=== PATIENT | female | born 1955 | race Caucasian/White ===

== ENCOUNTER 2020-02-08 09:14 | Emergency (ER) | payer MEDICARE, OTHER, SELFPAY ==
[2020-02-08 09:17] VITALS: BP 139/113; PULSE 107; RESP 20; TEMP 36.5; O2SAT 98; BMI 33.2
--- NOTE | 2020-02-08 09:20 | ED_ITS ---
HPI - Extremity Problem General: Chief complaint: Extremity Problem,Nontraumatic Stated complaint: LEFT LEG PAIN (KNEE) Time Seen by Provider: 02/08/20 09:20 Source: patient Mode of arrival: ambulatory Limitations: no limitations History of Present Illness: HPI Narrative: Patient comes in today with left anterior knee pain. Patient states that the pain started Thursday night. Patient denies any injury or fall. Patient is a chronic smoker. Patient appears well. Patient appears in moderate pain at rest. Review of Systems General: Reports: 10 or more systems reviewed and unremarkable except in HPI and below Musc: Reports: joint pain (left knee) [facility] PFSH: Social History Smoking and tobacco status: current every day smoker Physical Exam Const: COMMON NORMALS: no apparent distress and oriented x3 GENERAL APPEARANCE: cooperative HENMT: COMMON NORMALS: normocephalic, TM's normal bilaterally and external nose normal HEAD & SCALP: normal to inspection and normocephalic NOSE: external nose normal TYMPANIC MEMBRANE: TM's normal bilaterally MOUTH: oral and palatal mucosa normal THROAT: posterior oropharynx normal Eye: GENERAL EYE: normal appearance of both eyes Neck/C-Spine: COMMON NORMALS: full ROM Lymph: LYMPHATIC: no lymphadenopathy noted Chest: COMMONS NORMALS: inspection of chest normal Resp: COMMON NORMALS: normal respiratory effort EFFORT & INSPECTION: Yes able to speak in complete sentences Cardio: COMMON NORMALS: regular rate and regular rhythm RATE: regular rate RHYTHM: regular rhythm GI: COMMON NORMALS: non-tender : COMMON NORMALS: Yes no CVA tenderness BLADDER/KIDNEY EXAM: Yes no CVA tenderness Back/Pelvis: COMMON NORMALS: no CVA tenderness and thoracic and lumbar spine normal to inspection Extremity: NARRATIVE EXTREMITY EXAM: Anterior patellar pain with palpation of the infrapatellar tendon. No significant swelling. Decreased flexion due to pain. Normal range of motion of the hip without pain. No pain palpated in the sacroiliac or lumbar spine. No crepitus is noted to the knee. No redness or significant swelling is noted distally to the extremity. Strong pedal pulses are noted. Prompt capillary refill is noted. Neuro: COMMON NORMALS: oriented x3 and moves all extremities Psych: COMMON NORMALS: mental status grossly normal and cooperative Skin: COMMON NORMALS: no rashes or lesions noted GENERAL SKIN EXAM: no rashes or lesions noted Course Vital Signs: Vital signs: Vital Signs Temperature 97.7 F 02/08/20 09:17 Pulse Rate 107 H 02/08/20 09:17 Respiratory Rate 20 H 02/08/20 09:17 Blood Pressure 139/113 02/08/20 09:17 Pulse Oximetry 98 02/08/20 09:17 MDM - Extremity (Nontraumatic) MDM Narrative: Medical decision making narrative: Patient comes in today for complaints of left knee pain. Patient reports for the last day and a half 2 days patient has had increased pain to the left knee. Patient denies any injury. Exam notes minimal to no swelling noted to the extremity. Patient does have tenderness with manipulation of the patella. Range of motion of the knee is limited with flexion due to pain. No significant swelling or redness is noted to the extremity. Differential diagnosis includes tendinopathy, ost eoarthritis, strain. X-ray was negative for any acute abnormality. Reviewed exam with patient with recommendations for treatment and follow-up. Patient reports understanding agreed to plan. Discharge Plan Discharge Patient Disposition: Home, Self-Care Clinical Impression: Acute pain of left knee Knee osteoarthritis Qualifiers: Osteoarthritis type: unspecified Laterality: unspecified laterality Qualified Code(s): M17.10 - Unilateral primary osteoarthritis, unspecified knee Condition: Stable Prescriptions: New diclofenac sodium 75 mg tablet,delayed release (DR/EC) 75 mg PO BID Qty: 20 RF: 0 Discharge Orders: Discharge Order (Routine); Ordered 02/08/20 Ordered By: Sony Perkins Referrals: Tacho Morales MD [Primary Care Provider] - Discharge Diet: Usual diet Discharge Activity: Increase activity as tolerated Patient Instructions: Knee Pain (ED) Activity Restrictions/Additional Instructions: Maintain normal activity as tolerated. Use ice or heat for further pain relief. Drink plenty of water with medication. Use acetaminophen, Tylenol, for further pain relief with prescription medication. Follow-up with primary care in 1 week for recheck. Return to the ER for worsening symptoms or high fever. 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
--- NOTE | 2020-02-08 09:25 | XR_ITS ---
WS: [id number] XR knee LT 3V* [id number] REASON FOR EXAM: pain, non-traumatic FINDINGS: The meniscal spaces are normal. The patella tibial space was normal. The patella femoral articulations were normal. The femur, tibia, fibula, and patella show no fractures. XR/XR knee LT 3V* [id number] IMPRESSION: Negative left knee.
[2020-02-08] MEDS: ketorolac 30 mg/mL INJ IM (09:29)
--- NOTE | 2020-02-08 09:50 | PC.NURSE ---
Patient repositioned in bed and given a pillow to prop her knee up and an ice pack for her pain
[2020-02-08 10:22] VITALS: BP 149/88; PULSE 98; RESP 18; TEMP 36.9; O2SAT 97
== END 2020-02-08 10:20 | disposition home or self-care (01) ==
LOC: ER 10:02
PROVIDERS: Emergency Provider Nurse Practitioner Family; Family Provider Family Medicine; PCP Family Medicine
DX: M17.12 Unilateral primary osteoarthritis, left knee (principal); F17.210 Nicotine dependence, cigarettes, uncomplicated
CPT/HCPCS: 12345; 73562; 96372; 99281; 99283; J1885

== ENCOUNTER 2020-05-24 15:37 | Outpatient (CLI) | payer MEDICARE, SELFPAY ==
--- NOTE | 2020-05-24 15:46 | CT_ITS ---
WS: [id number] EXAM: CT chest wo con [id number] DATE OF EXAMINATION: 05/24/2020, 1557 hours COMPARISON: Prior CT from 05/16/2019 and 03/23/2018 HISTORY: 65 years old with pulmonary nodule follow-up TECHNIQUE: Transaxial computed tomography images obtained through the chest without the utilization o f contrast with images viewed in multiple windows with reconstructions. DLP: 624.[address] scans at [facility] use at least one of these dose optimization techniques: automat ed exposure control; mA and/or kV adjustment per patient size (includes targeted exams where dose is matched to clinical indication); or iterative reconstruction. FINDINGS: Emphysematous lung changes again demonstrated. Parenchymal loss in the upper lung zones again seen. C onsidered fairly extensive bilaterally. Small amount of scarring in the lateral segment of the middle lobe. The nodular density in the left lower lobe posterior lateral image 28 of 64 stable. Nodule abigail ge 31 of 64 stable. Third nodule image 37 of 64 stable. Nodular density anterior left lower lobe imag e 43 of 64 stable. No new or enlarging pulmonary nodules are demonstrated. Stability this timeframe s uggests a benign process. No further surveillance recommended. No mediastinal mass or adenopathy. Axi llary regions are normal in appearance. Streak artifact off a right shoulder hardware replacement shaun nges. Heart size is normal. Upper abdomen solid organ attenuation is unremarkable. CT/CT chest wo con [id number] IMPRESSION: Emphysematous lung changes similar. No change in noncalcified pulmonary nodules left lower lobe. Stable in a two-year time frame. No further surveillance petros mmended.
== END 2020-05-24 15:38 | disposition home or self-care (01) ==
LOC: RADWPI 15:37
PROVIDERS: PCP Nurse Practitioner Family; Visit Provider Nurse Practitioner Family
DX: R91.1 Solitary pulmonary nodule (principal)
CPT/HCPCS: 71250

== ENCOUNTER 2020-08-14 13:08 | Outpatient (CLI) | payer MEDICARE, SELFPAY ==
--- NOTE | 2020-08-14 13:20 | CT_ITS ---
WS: [id number] CT scan of the chest without IV contrast, additional two-dimensional coronal and sagittal reconstruct ion was performed. 08/14/2020 Clinical Data: LUNG NODULE Comparison: CT chest, 05/24/2020. DLP: 631.[address] scans at [facility] use at least one of these dose optimization techniques: automat ed exposure control; mA and/or kV adjustment per patient size (includes targeted exams where dose is matched to clinical indication); or iterative reconstruction. Findings: There are several small nodules throughout the lungs. However these have not changed in size or confi guration and there are no new nodules. All these nodules appear benign and no further imaging is petros mmended. No masses or effusions are seen. There is artifact from a right shoulder prosthesis. Bilateral upper lobe emphysematous change is present. No pneumonia or pneumothorax is present. The heart size is norm al with no pericardial effusion. There is coronary artery calcification. The pulmonary arterial syste m and thoracic aorta demonstrate no abnormalities or dilatations. There is no axillary or significant mediastinal adenopathy. 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 The upper abdomen shows no change from before. CT/CT chest wo con [id number] Impression: 1. Small benign nodules unchanged, recommend no further imaging. 2. Negative for acute cardiopulmonary disease.
== END 2020-08-14 13:09 | disposition home or self-care (01) ==
PROVIDERS: PCP Nurse Practitioner Family; Visit Provider Nurse Practitioner Family
DX: R91.1 Solitary pulmonary nodule (principal)
CPT/HCPCS: 71250

== ENCOUNTER 2021-07-01 09:26 | Inpatient (IN) | payer MEDICARE, SELFPAY ==
[2021-07-01] VITALS (16 sets, daily range): BP systolic 85–148; BP diastolic 34–103; PULSE 78–104; RESP 15–24; TEMP 36.2–37.6; O2SAT 93–100; BMI 23.4; BMI 22.1
--- NOTE | 2021-07-01 09:46 | XR_ITS ---
WS: [id number] Exam: XR hip LT 2-3V wo/w pel* [id number] Date/Time of Exam: 07/01/2021 9:48 AM Reason For Exam: fall with left hip pain Comparison 09/30/2018. There is a displaced subcapital fracture of the left hip with coxa vera deformity. There is superior and lateral displacement of the proximal femur. Moderate DJD of the joint compartment. Soft tissues a re unremarkable. XR/XR hip LT 2-3V wo/w pel* [id number] IMPRESSION: 1. Displaced subcapital fracture of the left hip with coxa vera deformity.
--- NOTE | 2021-07-01 09:46 | ED_ITS ---
Documented by User: JORGITO Kruger 07/01/21 11:20 HPI - Fall General: Chief Complaint: Fall Stated Complaint: LEFT HIP PAIN, FALL ON THURSDAY Time Seen by Provider: 07/01/21 09:26 History of Present Illness: HPI Narrative: Patient is a 66-year-old female comes to the ED with left hip pain. Patient had a fall on Thursday while she was at her house. She says she tripped over one of her 's shoes causing her to go down and hit the left side of her hip on the floor. Since her fall on Thursday she has not been able to weight-bear on left leg. She has been laying on the couch through the weekend. She rates her pain at 10 out of 10 days although occasionally for the left hip. Denies any head trauma or loss of consciousness. Associated symptoms-after fall: Denies abdominal pain, chest pain, headache(s), hematuria or neck pain Review of Systems Const: Denies: fever(s), chills or fatigue Eyes: Denies: change in vision or eye discomfort ENMT: Denies: throat pain, odynophagia, nasal discharge or nasal congestion Card: Denies: chest pain, palpitations, edema, swelling of feet/ankles, dyspnea on exertion or orthopnea Resp: Denies: dyspnea, productive cough or non-productive cough GI: Denies: abdominal pain, nausea, vomiting, diarrhea, constipation or hematochezia : Denies: flank pain, dysuria or hematuria Musc: Reports: joint pain (left hip); Denies: neck pain, back pain or extremity swelling Skin/Breast: Reports: other (Ecchymosis of the left lateral hip); Denies: rash or new lesions Neuro: Denies: headache(s), numbness in extremities or weakness in extremities PFSH ED PFSH: Medical History COPD (chronic obstructive pulmonary disease) Depression DJD (degenerative joint disease) Hyperlipidemia Hypertension Surgical History History of History of hip surgery History of shoulder surgery Social History Smoking and tobacco status: former smoker Alcohol intake: never Physical Exam Const: COMMON NORMALS: no acute distress, patient oriented x3 and alert GENERAL APPEARANCE: cooperative and comfortable HENMT: COMMON NORMALS: normocephalic HEAD & SCALP: normocephalic MOUTH: Normal oral and palatal mucosa present THROAT: posterior oropharynx normal and uvula midline Eye: COMMON NORMALS: Equal, round and reactive pupils present PUPIL: Yes Equal, round and reactive pupils present Neck/C-Spine: COMMON NORMALS: supple GENERAL: Yes normal visual inspection Resp: COMMON NORMALS: normal respiratory effort, No retractions, No use of accessory muscles and clear to auscultation bilaterally AUSCULTATION: clear to auscultation bilaterally Cardio: COMMON NORMALS: regular rate, regular rhythm, S1 normal heart sound present, S2 normal heart sound present, No gallops present (Cardio), No clicks present (Cardio), No murmurs present (Cardio) and Peripheral pulses 2+ throughout RATE: regular rate RHYTHM: regular rhythm HEART SOUNDS: S1 normal heart sound present and S2 normal heart sound present PERIPHERAL PULSES: Peripheral pulses 2+ throughout GI: COMMON NORMALS: Normal to inspection, nondistended, normoactive bowel sounds present, Soft to palpation, non-tender and no masses PALPATION: Yes Soft to palpation : COMMON NORMALS: Yes no CVA tenderness BLADDER/KIDNEY EXAM: Yes no CVA tenderness Back/Pelvis: COMMON NORMALS: no CVA tenderness Extremity: LEFT LOWER EXTREMITY: Yes hip joint Left hip: Yes inspection (Left leg appears shortened and externally rotated. Ecchymosis to hip), Yes palpation (Tender to palpation over lateral aspect of hip), Yes ROM (Limited due to pain) and Yes neurovascular exam (Neurovascular tact.) Neuro: COMMON NORMALS: patient oriented x3 and moves all extremities SENSO RIUM/ORIENTATION: Yes alert Skin: GENERAL SKIN EXAM: dry skin and ecchymosis (At left lateral hip.) Course Consultations: Consultation #1: I have a call placed in with Dr. Johnson to discuss patient's case and hip fracture results of x-ray. Dr. Johnson was currently in the OR and will be returning the call when he gets out. Time: 10:30 Vital Signs: Vital signs: Vital Signs Temperature 98.9 F 07/03/21 04:00 Pulse Rate 95 07/03/21 04:00 Respiratory Rate 16 07/03/21 04:00 Blood Pressure 124/81 07/03/21 04:00 Pulse Oximetry 97 07/03/21 04:00 MDM - Fall MDM Narrative: Medical decision making narrative: Patient is a 66-year-old female comes to the ED with left hip pain after a fall. Upon exam patient's left lower leg is shortened and externally rotated. Ecchymosis noted of left hip. X-ray of left hip showed a displaced subcapital fracture of the left hip with coxa vera deformity. I had a call placed to Dr. Johnson to inform them of patient case and the hip fracture, but he was currently in the OR and will return the call to the ED when he finishes up his case. I discussed case with Dr. Johnston and he will be taking over care of patient and having patient admitted. Lab Data: Attestation: I reviewed the patient's lab results. Labs: Lab Results 07/01/21 07/01/21 07/01/21 10:40 10:40 10:40 WBC 7.1 10^3/uL 10^3/ uL (4.0-10.0) RBC 3.53 10^6/uL L 10 ^6/uL (4.1-5.3) Hgb 10.8 g/dL L g/dL (11.5-15.3) Hct 32.8 % L % (37.0-47.0) MCV 92.9 fl fl (81-99) MCH 30.6 pg pg (28.0-34.0) MCHC 32.9 g/dL g/dL (30.0-36.0) RDW 13.2 % % (12.1-15.1) Plt Count 292 10^3/cmm 10^3 /cmm (130-400) MPV 9.1 fL fL (7.4-10.4) Neut % (Auto) 67.6 % % Lymph % (Auto) 20.1 % % [place] % (Auto) 10.0 % % Eos % (Auto) 1.4 % % Baso % (Auto) 0.6 % % Neut # (Auto) 4.82 10^3/uL 10^3 /uL (1.8-7.7) Lymph # (Auto) 1.4 10^3/uL 10^3/ uL (0.8-4.8) [place] # (Auto) 0.7 10^3/uL 10^3/ uL (0.2-0.9) Eos # (Auto) 0.1 10^3/uL 10^3/ uL (0.0-0.8) Baso # (Auto) 0.0 10^3/uL 10^3/ uL (0.0-0.1) Nucleated RBC % (a uto) 0 % % Nucleated RBCs # 0.0 /100WBC /100W BC PT 13.10 SECONDS SEC ONDS (12.1-14.9) INR 0.96 (0.8-1.2) APTT 35.6 SECONDS SECO NDS (23.9-36.7) Sodium 130 mmol/L L mmol /L (136-145) Potassium 3.6 mmol/L mmol/L (3.5-5.1) Chloride 95 mmol/L L mmol/ L (98-107) Carbon Dioxide 25 mmol/L mmol/L (22-29) Anion Gap 13.6 (5-19) BUN 13 mg/dL mg/dL (8-23) Creatinine 0.7 mg/dL mg/dL (0.5-0.9) GFR Calculation 83.2 mL/min L mL/ min (90-130) Glucose 99 mg/dL mg/dL (65-115) Calculated Osmolal ity 270 mOsm/kg L mOs m/kg (285-295) Calcium 9.5 mg/dL mg/dL (8.5-10.5) Total Bilirubin 0.3 mg/dL mg/dL (0.15-1.2) AST 18 U/L U/L (0-32) ALT 16 U/L U/L (0-33) Alkaline Phosphata se 68 IU/L IU/L (35-105) Creatine Kinase Total Protein 7.1 g/dL g/dL (6.6-8.7) Albumin 3.7 g/dL g/dL (3.5-5.2) Globulin 3.4 g/dL g/dL (1.3-4.6) Vitamin B12 TSH Urine Color Urine Appearance Urine pH Ur Specific Gravit y Urine Protein Urine Glucose (UA) Urine Ketones Urine Blood Urine Nitrate Urine Bilirubin Urine Urobilinogen Ur Leukocyte Sally ase 07/01/21 07/01/2107/01/21 10:40 10:40 13:39 WBC RBC Hgb Hct MCV MCH MCHC RDW Plt Count MPV Neut % (Auto) Lymph % (Auto) [place] % (Auto) Eos % (Auto) Baso % (Auto) Neut # (Auto) Lymph # (Auto) [place] # (Auto) Eos # (Auto) Baso # (Auto) Nucleated RBC % (a uto) Nucleated RBCs # PT INR APTT Sodium Potassium Chloride Carbon Dioxide Anion Gap BUN Creatinine GFR Calculation Glucose Calculated Osmolal ity Calcium Total Bilirubin AST ALT Alkaline Phosphata se Creatine Kinase 104 U/L U/L (26-192) Total Protein Albumin Globulin Vitamin B12 360 pg/mL pg/mL (232-1245) TSH 0.95 uIU/mL uIU/m L (0.27-4.20) Urine Color Yellow (Yellow) Urine Appearance Clear (CLEAR) Urine pH 6 (5-7) Ur Specific Gravit y 1.010 (1.005-1.030) Urine Protein Neg (Negative) Urine Glucose (UA) Norm (Normal) Urine Ketones Negative (Negative) Urine Blood Neg (Negative) Urine Nitrate Negative (Negative) Urine Bilirubin Neg (Negative) Urine Urobilinogen Norm mg/dL mg/dL (Negative) Ur Leukocyte Sally ase Negative (Negative) Imaging Data^: Xray Ortho: Attestation: I personally reviewed and interpreted this imaging study as follows: Radiologist's impression: [address] [address] XRay Report Signed Patient: Roxann Chamberlain Unit #: [id number] : 1955 Age/Sex: 66 / F ADM Date: 07/01/21 Loc: ER Room/Bed: Attending Dr: Ordering Provider/Ordering MD: Micky Arenas Date of Service: 07/01/21 Procedure(s): XR hip LT 2-3V wo/w pel* [id number] Accession Number(s): [id number] Report Number: [id number] WS: [id number] Exam: XR hip LT 2-3V wo/w pel* [id number] Date/Time of Exam: 07/01/2021 9:48 AM Reason For Exam: fall with left hip pain Comparison 09/30/2018. There is a displaced subcapital fracture of the left hip with coxa vera deformity. There is superior and lateral displacement of the proximal femur. Moderate DJD of the joint compartment. Soft tissues are unremarkable. XR/XR hip LT 2-3V wo/w pel* [id number] IMPRESSION: 1. Displaced subcapital fracture of the left hip with coxa vera deformity. Dictated By: Fareed Ng DO Signed By: Fareed Ng DO Signed Date/Time: 07/01/21 1007 DD/ 1006 Discharge Plan Discharge Patient Disposition: Admitted As Inpatient Admit Provider: Glen Johnson Clinical Impression: Left displaced femoral neck fracture, Hypertension, COPD (chronic obstructive pulmonary disease) Condition: Stable Sign Out Sign Out Data: Patient Sign Out occurred on 07/01/21 at 11:12. Patient's care was discussed, and care was transferred from to Jony Johnston DO. 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 Initially seen by the midlevel. She has shortening and external rotation of her left leg. Neurovascularly intact denies other injuries. MD complaint: fall Onset (ago): minute(s) Fall from: standing Place fall occurred: home Loss of consciousness: None Prolonged down time: no Symptoms prior to fall: none Context: tripped/slipped Location of injury - extremities: Left: thigh (Hip) Severity: severe Quality: sharp Associated symptoms-after fall: Reports difficulty walking; Denies abdominal pain, chest pain, confusion, headache(s), hematuria, lightheadedness, neck pain, numbness, short of breath, vertigo or weakness Review of Systems Const: Denies: fever(s), chills, body aches, change in appetite, fatigue or malaise ENMT: Denies: throat pain, ear or mastoid pain, nasal discharge or nasal congestion Card: Denies: chest pain or lightheadedness Resp: Denies: dyspnea, productive cough or non-productive cough GI: Denies: abdominal pain : Denies: hematuria Musc: Denies: neck pain Skin/Breast: Denies: rash or pruritus Neuro: Reports: difficulty walking; Denies: headache(s), vertigo or confusion PFSH ED PFSH: Medical History COPD (chronic obstructive pulmonary disease) Depression DJD (degenerative joint disease) Hyperlipidemia Hypertension Surgical History History of History of hip surgery History of shoulder surgery Social History Smoking and tobacco status: former smoker Alcohol intake: never Physical Exam Const: COMMON NORMALS: no acute distress GENERAL APPEARANCE: cooperative and comfortable ORIENTATION/CONSCIOUSNESS: Yes awake, Yes oriented to person, Yes oriented to place and Yes oriented to time HENMT: COMMON NORMALS: normocephalic and atraumatic HEAD & SCALP: normocephalic and atraumatic Neck/C-Spine: COMMON NORMALS: no JVD Resp: COMMON NORMALS: normal respiratory effort, No retractions, No use of accessory muscles and clear to auscultation bilaterally AUSCULTATION: clear to auscultation bilaterally Cardio: COMMON NORMALS: no JVD, regular rate, regular rhythm and No murmurs present (Cardio) RATE: regular rate RHYTHM: regular rhythm GI: COMMON NORMALS: Soft to palpation and No hepatosplenomegaly present AUSCULTATION: Yes normoactive bowel sounds PALPATION: Yes Soft to palpation, No Tenderness to palpation present (GI), No Guarding due to palpation present (GI) and Yes No hepatosplenomegaly present Extremity: COMMON NORMALS: normal to inspection, capillary refill normal, no clubbing, cyanosis or edema, no calf tenderness and no pedal edema NARRATIVE EXTREMITY EXAM: Obvious deformity of the left hip consistent with left hip fracture Neuro: SENSORIUM/ORIENTATION: Yes oriented to person, Yes oriented to place and Yes oriented to time Skin: COMMON NORMALS: no rashes or lesions noted GENERAL SKIN EXAM: no rashes or lesions noted Course Vital Signs: Vital signs: Vital Signs Temperature 98.9 F 07/03/21 04:00 Pulse Rate 95 07/03/21 04:00 Respiratory Rate 16 07/03/21 04:00 Blood Pressure 124/81 07/03/21 04:00 Pulse Oximetry 97 07/03/21 04:00 MDM - Fall MDM Narrative: Medical decision making narrative: Discussed with Ortho and the hospitalist. Seen and evaluated patient reviewed labs and imaging is available on the chart. We will go ahead and admit for left subcapital hip fracture. Orders are written. Lab Data: Labs: Lab Results 07/01/21 07/01/21 07/01/21 10:40 10:40 10:40 WBC 7.1 10^3/uL 10^3/ uL (4.0-10.0) RBC 3.53 10^6/uL L 10 ^6/uL (4.1-5.3) Hgb 10.8 g/dL L g/dL (11.5-15.3) Hct 32.8 % L % (37.0-47.0) MCV 92.9 fl fl (81-99) MCH 30.6 pg pg (28.0-34.0) MCHC 32.9 g/dL g/dL (30.0-36.0) RDW 13.2 % % (12.1-15.1) Plt Count 292 10^3/cmm 10^3 /cmm (130-400) MPV 9.1 fL fL (7.4-10.4) Neut % (Auto) 67.6 % % Lymph % (Auto) 20.1 % % [place] % (Auto) 10.0 % % Eos % (Auto) 1.4 % % Baso % (Auto) 0.6 % % Neut # (Auto) 4.82 10^3/uL 10^3 /uL (1.8-7.7) Lymph # (Auto) 1.4 10^3/uL 10^3/ uL (0.8-4.8) [place] # (Auto) 0.7 10^3/uL 10^3/ uL (0.2-0.9) Eos # (Auto) 0.1 10^3/uL 10^3/ uL (0.0-0.8) Baso # (Auto) 0.0 10^3/uL 10^3/ uL (0.0-0.1) Nucleated RBC % (a uto) 0 % % Nucleated RBCs # 0.0 /100WBC /100W BC PT 13.10 SECONDS SEC ONDS (12.1-14.9) INR 0.96 (0.8-1.2) APTT 35.6 SECONDS SECO NDS (23.9-36.7) Sodium 130 mmol/L L mmol /L (136-145) Potassium 3.6 mmol/L mmol/L (3.5-5.1) Chloride 95 mmol/L L mmol/ L (98-107) Carbon Dioxide 25 mmol/L mmol/L (22-29) Anion Gap 13.6 (5-19) BUN 13 mg/dL mg/dL (8-23) Creatinine 0.7 mg/dL mg/dL (0.5-0.9) GFR Calculation 83.2 mL/min L mL/ min (90-130) Glucose 99 mg/dL mg/dL (65-115) Calculated Osmolal ity 270 mOsm/kg L mOs m/kg (285-295) Calcium 9.5 mg/dL mg/dL (8.5-10.5) Total Bilirubin 0.3 mg/dL mg/dL (0.15-1.2) AST 18 U/L U/L (0-32) ALT 16 U/L U/L (0-33) Alkaline Phosphata se 68 IU/L IU/L (35-105) Creatine Kinase Total Protein 7.1 g/dL g/dL (6.6-8.7) Albumin 3.7 g/dL g/dL (3.5-5.2) Globulin 3.4 g/dL g/dL (1.3-4.6) Vitamin B12 TSH Urine Color Urine Appearance Urine pH Ur Specific Gravit y Urine Protein Urine Glucose (UA) Urine Ketones Urine Blood Urine Nitrate Urine Bilirubin Urine Urobilinogen Ur Leukocyte Sally ase 07/01/21 07/01/2121 10:40 10:40 13:39 WBC RBC Hgb Hct MCV MCH MCHC RDW Plt Count MPV Neut % (Auto) Lymph % (Auto) [place] % (Auto) Eos % (Auto) Baso % (Auto) Neut # (Auto) Lymph # (Auto) [place] # (Auto) Eos # (Auto) Baso # (Auto) Nucleated RBC % (a uto) Nucleated RBCs # PT INR APTT Sodium Potassium Chloride Carbon Dioxide Anion Gap BUN Creatinine GFR Calculation Glucose Calculated Osmolal ity Calcium Total Bilirubin AST ALT Alkaline Phosphata se Creatine Kinase 104 U/L U/L (26-192) Total Protein Albumin Globulin Vitamin B12 360 pg/mL pg/mL (232-1245) TSH 0.95 uIU/mL uIU/m L (0.27-4.20) Urine Color Yellow (Yellow) Urine Appearance Clear (CLEAR) Urine pH 6 (5-7) Ur Specific Gravit y 1.010 (1.005-1.030) Urine Protein Neg (Negative) Urine Glucose (UA) Norm (Normal) Urine Ketones Negative (Negative) Urine Blood Neg (Negative) Urine Nitrate Negative (Negative) Urine Bilirubin Neg (Negative) Urine Urobilinogen Norm mg/dL mg/dL (Negative) Ur Leukocyte Sally ase Negative (Negative) Discharge Plan Discharge Patient Disposition: Admitted As Inpatient Admit Provider: Glen Johnson Clinical Impression: Left displaced femoral neck fracture, Hypertension, COPD (chronic obstructive pulmonary disease) Condition: Stable Sign Out Sign Out Data: Patient Sign Out occurred on 07/01/21 at 11:12. Patient's care was discussed, and care was transferred from to Jony Johnston DO. 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
[2021-07-01] MEDS: morphine 4 mg/mL SDV 1 mL IM (10:21)
[2021-07-01 10:50] LABS: Basophils % 0.6 %; Eosinophils # 0.1 10^3/uL (0.0-0.8); Eosinophils % 1.4 %; Hematocrit 32.8 % (37.0-47.0); Hemoglobin 10.8 g/dL (11.5-15.3); Lymphocytes # 1.4 10^3/uL (0.8-4.8); Lymphocytes % 20.1 %; Mean Corpuscular HGB Conc 32.9 g/dL (30.0-36.0); Mean Corpuscular Hemoglobin 30.6 pg (28.0-34.0); Mean Corpuscular Volume 92.9 fl (81-99); Mean Platelet Volume 9.1 fL (7.4-10.4); Monocytes # 0.7 10^3/uL (0.2-0.9); Neutrophils # 4.82 10^3/uL (1.8-7.7); Neutrophils % 67.6 %; Nucleated Red Blood Cells % 0 %; Platelet Count 292 10^3/cmm (130-400); Red Blood Count 3.53 10^6/uL (4.1-5.3); Red Cell Distribution Width 13.2 % (12.1-15.1); White Blood Count 7.1 10^3/uL (4.0-10.0)
[2021-07-01 11:08] LABS: Alanine Aminotransferase 16 U/L (0-33); Albumin Level 3.7 g/dL (3.5-5.2); Alkaline Phosphatase 68 IU/L (35-105); Anion Gap 13.6 (5-19); Aspartate Amino Transferase 18 U/L (0-32); Blood Urea Nitrogen 13 mg/dL (8-23); Calcium 9.5 mg/dL (8.5-10.5); Carbon Dioxide 25 mmol/L (22-29); Chloride 95 mmol/L (98-107); Globulin 3.4 g/dL (1.3-4.6); Glomerular Filtration Rate 83.2 mL/min (90-130); Glucose 99 mg/dL (65-115); Osmolality Calculated 270 mOsm/kg (285-295); Potassium 3.6 mmol/L (3.5-5.1); Sodium 130 mmol/L (136-145); Total Bilirubin 0.3 mg/dL (0.15-1.2); Total Protein 7.1 g/dL (6.6-8.7)
--- NOTE | 2021-07-01 11:16 | XR_ITS ---
WS: [id number] Exam: XR chest 1V portable [id number] Date/Time of Exam: 07/01/2021 11:21 AM Reason For Exam: dyspnea/cough Comparison 08/20/2018. The lungs are clear and fully inflated. Unremarkable cardiomediastinal silhouette. Healing fractures of the lateral left seventh and eighth ribs. No pneumothorax. No pleural effusion. Reverse right shou lder prosthesis. XR/XR chest 1V portable [id number] IMPRESSION: 1. Recent appearing fractures of the lateral left seventh and eighth ribs. No p neumothorax. 2. No acute cardiopulmonary process noted otherwise.
--- NOTE | 2021-07-01 11:16 | ECG_ITS ---
[facility] Test Date: 2021-07-01 Pat Name: Roxann Chamberlain Department: Room: Gender: Female Tierce Filler: : 1955 Requested By: Jony Barraza Order Number: [id number] Marilyn MD: Ru Castillo M.D. Measurements Intervals [place] Rate: 94 P: 78 IA: 138 QRS: -8 QRSD: 82 T: 40 QT: 352 QTc: 440 Interpretive Statements SINUS RHYTHM POSSIBLE LEFT ATRIAL ENLARGEMENT [-0.1mV P-WAVE IN V1/V2] Compared to ECG 02/21/2019 09:07:53 No significant changes Electronically Signed On 07-01-2021 22:11:23 CDT by Ru Castillo M.D. [id number]
[2021-07-01 11:37] LABS: INR 0.96 (0.8-1.2)
[2021-07-01 11:38] LABS: Partial Thromboplastin Time 35.6 SECONDS (23.9-36.7)
[2021-07-01 11:43] LABS: Creatine Phosphokinase 104 U/L (26-192)
--- NOTE | 2021-07-01 11:59 | CT_ITS ---
WS: [id number] CT HEAD NONCONTRAST HISTORY: Altered mental status TECHNIQUE: Contiguous axial imaging performed through the brain in 2.5 mm imaging. Bone and soft tiss ue windows. Sagittal and coronal reformats reviewed. All CT scans at [facility] use at least one of these dose optimization techniques: automated exposure control; mA and/or kV adjustment per pa tient size (includes targeted exams where dose is matched to clinical indication); or iterative recon struction. DLP: 744.28 mGy.cm COMPARISON: None available. No acute intracranial hemorrhage, midline shift or mass effect. Mild atrophy and mild chronic ischemic disease. Small lacunar infarcts in the external capsules bilat erally. Ventricles: Normal size with no hydrocephalus. Paranasal sinuses: As visualized are clear. Mastoid air cells: Well pneumatized. Calvarium and scalp: Skull is intact with no soft tissue edema or swelling. CT/CT head wo con* [id number] IMPRESSION: 1. No acute intracranial hemorrhage or edema. 2. Mild cerebral atrophy and chronic ischemic type changes.
--- NOTE | 2021-07-01 12:03 | PM.HP ---
Providers/Chief Complaint Primary Care Provider: Crystal Mccabe NP Chief Complaint: LEFT HIP PAIN, FALL ON THURSDAY History of Present Illness Roxann Chamberlain is a 66 year old female who presents to the emergency department after a fall. She states she tripped over her 's shoes after getting off the couch around 1:59 AM Thursday morning. She states she has been spending time on the couch, unable to bear weight. She denies any syncopal episode. She has difficulty with word finding ability during her interview. She believes this is old, or perhaps due to the pain medicine she has taken. She denies any headache, nausea, or trauma to her head. She denies any chest pain. She has had no problems with anesthesia. She does report history of COPD, and stopped smoking about a year ago. No dizziness. Review of Systems General: Reports: 10 or more systems reviewed and unremarkable except in HPI and below Const: Denies: fever(s) or chills Eyes: Denies: change in vision ENMT: Denies: throat pain Card: Denies: chest pain Resp: Denies: dyspnea GI: Denies: abdominal pain, nausea, vomiting or hematochezia : Denies: flank pain Musc: Denies: neck pain Skin/Breast: Denies: rash Neuro: Denies: headache(s) Psych: Denies: anxiety or depression Endo: Denies: polyuria [place]/Lymph: Denies: easy bruising All/Imm: Denies: urticaria Medications/Allergies Home Medications Medication Instructions Recorded Confirmed Last Taken Type diclofenac sodium 75 mg PO BID #20 tab 02/08/20 Unknown Rx Allergies Allergy/AdvReac Type Severity Reaction Status Date / Time No Known Allergies Allergy Verified 07/01/21 12:23 PFSH Acute PFSH: Medical History (Updated 07/01/21 @ 12:20 by Arsh Arndt MD) COPD (chronic obstructive pulmonary disease) Depression DJD (degenerative joint disease) Hyperlipidemia Hypertension Surgical History (Updated 07/01/21 @ 12:11 by Arsh Arndt MD) History of History of hip surgery History of shoulder surgery Social History (Updated 07/01/21 @ 12:11 by Arsh Arndt MD) Smoking and tobacco status: former smoker Alcohol intake: never Supplemental PFSH Information: Family history significant for alcoholism Vitals/I&O/Wt Last Vital Signs Temp 98.3 F 07/01/21 09:31 Pulse 100 07/01/21 11:51 Resp 18 07/01/21 11:51 BP 141/102 07/01/21 11:51 Pulse Ox 97 07/01/21 11:51 Weight last 48 hrs Weight 54.431 kg Physical Exam Narrative: EXAM NARRATIVE: General exam is a white female, who appears to have some word finding difficulty in no distress. She reports this is old. HEENT: Pupils equally round Neck supple no lymphadenopathy or thyromegaly Cardiovascular regular rate and rhythm without murmur Lungs clear no wheezing or crackles Abdomen is soft with positive bowel sounds. No obvious organomegaly. exam is deferred Extremities no cyanosis clubbing. Left lower extremity with shortening and external rotation Skin no rash Neuro moves all 4 extremities without difficulty. Some word finding difficulties. Patient relates this is old. Data : 07/01/21 10:40 07/01/21 10:40 Micro: Microbiology 07/01/21 10:40 Blood Culture - Preliminary Blood SPECIMEN COLLECTED 07/01/21 10:40 Blood Culture - Preliminary Blood SPECIMEN COLLECTED Other data: EKG demonstrates normal sinus rhythm, nonspecific ST-T wave changes, borderline left axis. INR 0.96 LFTs normal Chest x-ray demonstrates recent rib fractures left seventh and eighth, no pneumothorax. A&P Assessment and plan (1) Closed left hip fracture: N.p.o. [facility] Orthopedic consultation Pain control No direct contraindications to repair, so long as CT head is negative. Status: Acute (2) Hyponatremia: Hydration Recheck in the morning Status: Acute (3) Cognitive developmental delay: CT head Check TSH, B12 level Status: Acute (4) Rib fractures: Unknown timing. Incentive spirometry Status: Acute (5) Anemia: May be related to fracture Recheck CBC in a.m. Status: Acute (6) COPD (chronic obstructive pulmonary disease): Pulmonary toilet Status: Acute (7) Hypertension: Investigate home meds, restart Hydralazine as needed Status: Acute Additional A&P Information History of hyperlipidemia History of depression Full code SCDs for DVT prophylaxis currently. Plan on full anticoagulation following surgery. We will also want CT of head results prior to starting. Attestations Medical Necessity Statement*: Will need greater than 2 midnight stay secondary to hip fracture requiring surgical repair. 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
--- NOTE | 2021-07-01 12:45 | PC.PHAR ---
PT UNABLE TO VERIFY HER MEDICATIONS-PT STATES SHE TAKES RX AND OTC MEDICATIONS BUT DOESNT KNOW THE NAMES OF THEM-MEDICATIONS ENTERED ARE THE MEDS THAT [facility] HAS FILLED RECENTLY
[2021-07-01 12:52] LABS: Thyroid Stimulating Hormone 0.95 uIU/mL (0.27-4.20); Vitamin B12 360 pg/mL (232-1245)
--- NOTE | 2021-07-01 13:25 | P.ANESASSM_ITS ---
Pre-Anesthetic Assessment Pre-Anesthetic Assessment: Height/Weight: Height 1.52 m Weight 54.431 kg Temp Pulse Resp BP Pulse Ox 97.8 F 95 18 130/98 100 07/01/21 13:15 07/01/21 13:15 07/01/21 13:15 07/01/21 13:15 07/01/21 13:15 Preop Diagnosis: HIp fracture Proposed Procedure: Operation Date: 07/01/21 15:35 Proposed Procedures p Hemiarthroplasty Hip(Left) - Glen Johnson MD Familial anesthetic complications: None Was Beta Jerri taken within 24 hours: N/A Was Clonidine taken within 24 hours: N/A Last intake: > 8 hrs Social: Social History: No alcohol and No tobacco Comment: former smoker Exam: Pre-Anes Outpt Exam: alert, oriented x 3, clear to auscultation bilaterally and regular rate & rhythm Airway: Cervical ROM: WNL MP: 2 Additional comments: Very poor dentition - rotten, broken Pulmonary: Pulmonary: COPD CV/HEM: CV/HEM: HTN Metabolic: Metabolic: Hyperlipidemia Comments: hyponatremia Anesthetic Plan: ASA status: 2 Anesthesia: Regional (specify below) (spinal) Risk of > 500 ml blood loss (7ml/kg in children): No PFSH Anesthesia PFSH: Medical History (Updated 07/01/21 @ 12:20 by Arsh Arndt MD) COPD (chronic obstructive pulmonary disease) Depression DJD (degenerative joint disease) Hyperlipidemia Hypertension Surgical History (Updated 07/01/21 @ 12:11 by Arsh Arndt MD) History of History of hip surgery History of shoulder surgery Social History (Updated 07/01/21 @ 12:11 by Arsh Arndt MD) Smoking and tobacco status: former smoker Alcohol intake: never Supplemental PFSH Information: Family history significant for alcoholism Data Anesthesia CBC & Chem 7: 07/01/21 10:40 07/01/21 10:40 Other Labs: Laboratory Results - last 48 hr 07/01/21 07/01/21 07/01/21 10:40 10:40 10:40 WBC 7.1 RBC 3.53 L Hgb 10.8 L Hct 32.8 L MCV 92.9 MCH 30.6 MCHC 32.9 RDW 13.2 Plt Count 292 MPV 9.1 Neut % (Auto) 67.6 Lymph % (Auto) 20.1 Swisher % (Auto) 10.0 Eos % (Auto) 1.4 Baso % (Auto) 0.6 Neut # (Auto) 4.82 Lymph # (Auto) 1.4 Swisher # (Auto) 0.7 Eos # (Auto) 0.1 Baso # (Auto) 0.0 Nucleated RBC % (auto) 0 Nucleated RBCs # 0.0 PT 13.10 INR 0.96 APTT 35.6 Sodium 130 L Potassium 3.6 Chloride 95 L Carbon Dioxide 25 Anion Gap 13.6 BUN 13 Creatinine 0.7 GFR Calculation 83.2 L Glucose 99 Calculated Osmolality 270 L Calcium 9.5 Total Bilirubin 0.3 AST 18 ALT 16 Alkaline Phosphatase 68 Creatine Kinase Total Protein 7.1 Albumin 3.7 Globulin 3.4 Vitamin B12 TSH 07/01/21 07/01/21 10:40 10:40 WBC RBC Hgb Hct MCV MCH MCHC RDW Plt Count MPV Neut % (Auto) Lymph % (Auto) Swisher % (Auto) Eos % (Auto) Baso % (Auto) Neut # (Auto) Lymph # (Auto) Swisher # (Auto) Eos # (Auto) Baso # (Auto) Nucleated RBC % (auto) Nucleated RBCs # PT INR APTT Sodium Potassium Chloride Carbon Dioxide Anion Gap BUN Creatinine GFR Calculation Glucose Calculated Osmolality Calcium Total Bilirubin AST ALT Alkaline Phosphatase Creatine Kinase 104 Total Protein Albumin Globulin Vitamin B12 360 TSH 0.95 Micro: Microbiology 07/01/21 10:40 Blood Culture - Preliminary Blood SPECIMEN COLLECTED 07/01/21 10:40 Blood Culture - Preliminary Blood SPECIMEN COLLECTED Cardiac Studies: No Data to Display
[2021-07-01 14:29] LABS: Add Urine Microscopic? NO; Charge for UA Resulting for Rev
[2021-07-01 14:39] LABS: Bilirubin Urine Neg (Negative); Blood Urine Neg (Negative); Glucose Urine UA Norm (Normal); Ketones Urine Negative (Negative); Leukocyte Esterase Urine Negative (Negative); Nitrate Urine Negative (Negative); Protein Urine Neg (Negative); Urine Appearance Clear (CLEAR); Urine Color Yellow (Yellow); Urobilinogen Urine Norm (Negative); pH Urine 6 (5-7)
--- NOTE | 2021-07-01 14:40 | PM.CONSULT ---
Providers/Reason For Consult Consulting Physician/Specialty*: Glen Johnson MD; orthopedic surgeon Reason for Consult*: Left femoral neck fracture Attending Physician: Glen Johnson MD Primary Care Provider: Crystal Mccabe NP History of Present Illness History of Present Illness Roxann Chamberlain is a 66 year old female who fell at home. She reports she tripped over her shoes while getting off the couch Thursday morning. She was unable to bear weight and was taken to the hospital this morning were radiographs revealed a displaced left femoral neck fracture. She has a previous right femoral neck fracture treated by myself approximately 2 years ago. She denies any other extremity pain. She denies any loss of consciousness. Meds/Allergies Home Medications and Allergies Home Medications Medication Instructions Recorded Confirmed Last Taken Type albuterol sulfate [ProAir HFA] 1 - 2 puff INHALATION Q4H PRN 07/01/21 07/01/21 Unknown History alendronate 70 mg PO Q7D 07/01/21 07/01/21 Unknown History amlodipine 10 mg PO DAILY 07/01/21 07/01/21 Unknown History lisinopril See Rx Instructions .ROUTE .COMPLEX 07/01/21 07/01/21 Unknown History mirtazapine 30 mg PO BEDTIME 07/01/21 07/01/21 Unknown History pravastatin 80 mg PO DAILY 07/01/21 07/01/21 Unknown History Allergies Allergy/AdvReac Type Severity Reaction Status Date / Time No Known Allergies Allergy Verified 07/01/21 12:44 PFSH Acute PFSH: Medical History (Updated 07/01/21 @ 14:43 by Glen Johnson MD) COPD (chronic obstructive pulmonary disease) Depression DJD (degenerative joint disease) Hyperlipidemia Hypertension Surgical History (Updated 07/01/21 @ 12:11 by Arsh Arndt MD) History of History of hip surgery History of shoulder surgery Social History (Updated 07/01/21 @ 12:11 by Arsh Arndt MD) Smoking and tobacco status: former smoker Alcohol intake: never Vitals/I&O/Wt Last Vital Signs Temp 97.8 F 07/01/21 13:15 Pulse 95 07/01/21 13:15 Resp 18 07/01/21 13:15 BP 130/98 07/01/21 13:15 Pulse Ox 100 07/01/21 13:15 Weight last 48 hrs Weight 120 lb Physical Exam Narrative: EXAM NARRATIVE: The patient is difficult to understand but appears to have a good recollection of events and answers questions appropriately. There is shortening and external rotation of the left hip She has a palpable left dorsalis pedis pulse. She will flex and extend her toes and ankle on the left without motor deficits Urinary Catheter Management^: Ko: Cath Placed During This Visit: yes Urinary Catheter Date of Insertion: 07/01/21 Urinary Catheter Time of Insertion: 13:43 Data Micro: Micro: Microbiology 07/01/21 10:40 Blood Culture - Pr eliminary Blood SPECIMEN [facility] 07/01/21 10:40 Blood Culture - Pr eliminary Blood SPECIMEN [facility] Imaging^: Xray Ortho: My impression: 2 views of the left hip are reviewed. The patient has displaced fracture of the left femoral neck. A&P Assessment and plan (1) Left displaced femoral neck fracture: I discussed options with the patient and family. I told them possible treatments for displaced femoral neck fracture would include nonoperative treatment, open reduction internal fixation, or hemiarthroplasty. I told them without treatment the patient would experience ongoing of pain that would limit mobility. This would require pain medications and place her at medical risks due to prolonged periods of bed rest. I discussed the possibility of open reduction internal fixation with pins. I warned them that for displaced fractures of the risk of nonunion and malunion is exceptionally high. In addition there is a high likelihood that the blood applied to the femoral head has been disrupted and that even with successful stabilization of the fracture the femoral head will go on to . I finally discussed the possibility of hemiarthroplasty. I think this would give the patient the greatest chance of being immediately mobilized. I discussed risk of a bleeding and a possible need for blood products. I discussed risk of deep venous thromboses and pulmonary emboli and the need for anticoagulation. I discussed the use of the TXA that may be utilized to diminish blood loss. I discussed risk of component failure and loosening that could require revision. I discussed the risk of dislocation and a bipolar arthroplasty which is quite unlikely. After a long discussion of options they agree to hemiarthroplasty of the hip. I told him ultimately the patient will likely require senior living placement. Status: Acute Coding Level of Care Code Acute Electrician Office for Neida Leonard Diagnoses Left displaced femoral neck fracture S72.002A
[2021-07-01] MEDS: tranexamic acid 1,000 mg/10mL SDV 2000 MG IRRIGATION (17:14)
--- NOTE | 2021-07-01 18:28 | XR_ITS ---
WS: [id number] Exam: XR hip LT 1V wo/w pel [id number] Date/Time of Exam: 07/01/2021 6:28 PM Reason For Exam: Left hip hemiarthroplasty A hemiprosthesis replaces the head and neck of the left femur and is in satisfactory position. Postop erative changes in the adjacent soft tissues. XR/XR hip LT 1V wo/w pel [id number] IMPRESSION: 1. Left hemiprosthesis in place in satisfactory position.
--- NOTE | 2021-07-01 18:30 | PM.OP ---
Operative Report Date of procedure: July 01, 2021 Pre-op Diagnosis: Left femoral neck fracture, displaced Post-op diagnosis: same Post-op Findings: Same Procedure Done: Left bipolar hip arthroplasty Pathology: none sent Surgeon: Glen Johnson Anesthesia: Nerve Block (Spinal) Estimated blood loss (mL): 200 Complications: None Findings: Patient had a displaced fracture of the left femoral Condition: stable Disposition: PACU Procedure: The patient was taken to the operating room and a spinal anesthesia was provided by the anesthesia service. They were given 2 g of Ancef. and positioned in the lateral position with the hip exposed. A 10 cm long incision was made over the greater trochanter with a scalpel blade. Dissection was carried down through the fascia rhiannon to the greater trochanter. The anterior two thirds of gluteus medius and minimus were elevated off the greater trochanter with electrocautery. The capsule was divided T like fashion. The hip was externally rotated and the neck brought up into the wound. An oscillating saw was really used to resect the neck just above the level of the lesser trochanter. The femoral head was removed and the acetabulumt sized to a 44 mm bipolar head. Sequential reaming and broaching of the canal was accomplished up to a size 7. A size 7 [place] [employer] CORDERO stem was press fit into place. A trial reduction with a -3 mm neck provided excellent stability. The final head and neck were placed and the hip reduced. The anterior capsule were reapproximated with 1 Ethibond. The gluteus medius and minimus were repaired through the greater trochanter with 5 Ethibond and reinforced with 1 Ethibond. The fascia rhiannon was closed with 1 Stratafix. The subcutaneous tissues were closed with 2-0 Stratafixl. The skin was closed with a running 4-0 Stratafix. The incision was covered with a Prineo dressing. Sterile Opsitedressings were applied. The patient was placed in abduction pillow and taken recovery room in stable condition. [place] 1) [employer] CORDERO collored stem, size 7 2) 44 bipolar femoral head 3) 28mm/-3 neck length femoral head
--- NOTE | 2021-07-01 18:49 | SUR.PHASEI ---
PT AWAKE ALERT C/O OF BEING COLD WARM BLANKETS X 5 TO PT, VSS PT RICKI TO MOVE BILAT FEET AND TOES, SPINAL ANESTHESIA AT OR BELOW T-10 DUANE. DUBOSE TO DD WITH YELLOW URINE TO TUBING AND BAG.
--- NOTE | 2021-07-01 19:30 | ANE.PACU2 ---
Inpatient post-anesthesia follow up: Airway intact: Yes Vital signs: Temperature 98.4 F Pulse Rate [Monito r] 97 Pulse Rate 105 Respiratory Rate 18 Blood Pressure [Le ft Arm] 140/103 Blood Pressure 166/95 Pulse Oximetry 95 Oxygen Delivery Me thod Room Air Oxygen Flow Rate Fraction of Inspir ed Oxygen Hydration adequate: Yes Nausea and vomiting: No Pain level: 3 Mental status: Baseline
[2021-07-01] MEDS: sodium chloride 0.9% 1,000 ML 75 ML IV (21:48)
[2021-07-01] MEDS: mirtazapine 30 mg Tablet PO (21:48)
[2021-07-01] MEDS: morphine 4 mg/mL SDV 1 mL 2 MG IVP (21:48)
[2021-07-01] MEDS: morphine 4 mg/mL SDV 1 mL IVP (23:33)
[2021-07-02] VITALS (8 sets, daily range): BP systolic 101–166; BP diastolic 67–95; PULSE 99–111; RESP 16–19; TEMP 36.8–37.7; O2SAT 94–99
[2021-07-02 03:08] LABS: Basophils % 0.3 %; Eosinophils # 0.1 10^3/uL (0.0-0.8); Eosinophils % 0.5 %; Hemoglobin 10.2 g/dL (11.5-15.3); Lymphocytes # 1.2 10^3/uL (0.8-4.8); Lymphocytes % 9.6 %; Mean Corpuscular HGB Conc 31.9 g/dL (30.0-36.0); Mean Corpuscular Hemoglobin 30.9 pg (28.0-34.0); Mean Platelet Volume 8.9 fL (7.4-10.4); Monocytes # 1.1 10^3/uL (0.2-0.9); Monocytes % 8.4 %; Neutrophils % 80.9 %; Nucleated Red Blood Cells % 0 %; Platelet Count 253 10^3/cmm (130-400); Red Cell Distribution Width 13.2 % (12.1-15.1); White Blood Count 12.7 10^3/uL (4.0-10.0)
[2021-07-02 03:31] LABS: Alanine Aminotransferase 14 U/L (0-33); Albumin Level 3.3 g/dL (3.5-5.2); Alkaline Phosphatase 58 IU/L (35-105); Anion Gap 13.5 (5-19); Aspartate Amino Transferase 21 U/L (0-32); Blood Urea Nitrogen 13 mg/dL (8-23); Calcium 8.8 mg/dL (8.5-10.5); Carbon Dioxide 22 mmol/L (22-29); Chloride 98 mmol/L (98-107); Globulin 3.2 g/dL (1.3-4.6); Glomerular Filtration Rate 99.4 mL/min (90-130); Glucose 103 mg/dL (65-115); Osmolality Calculated 270 mOsm/kg (285-295); Potassium 3.5 mmol/L (3.5-5.1); Sodium 130 mmol/L (136-145); Total Bilirubin 0.4 mg/dL (0.15-1.2); Total Protein 6.5 g/dL (6.6-8.7)
[2021-07-02] MEDS: HYDROcodone-acetaminophen 5-325 mg Tablet 1 TAB PO ×4 (04:09→23:15)
[2021-07-02] MEDS: morphine 4 mg/mL SDV 1 mL 2 MG IVP (04:09)
[2021-07-02] MEDS: lisinopril 20 mg Tablet 30 MG PO (05:33)
--- NOTE | 2021-07-02 08:17 | PM.PN ---
Subjective Subjective: Interval history: Patient awake and alert. Difficult to understand but seemingly awake and alert. Vitals/I&O/Wt Last Vital Signs Temp 99.9 F H 07/02/21 07:28 Pulse 108 H 07/02/21 07:28 Resp 16 07/02/21 07:28 BP 147/91 07/02/21 07:28 Pulse Ox 94 07/02/21 07:28 07/01/21 07/02/21 07/02/21 22:59 06:59 14:59 Intake Total 170 / 170 Output Total 350 / 355 Balance 165 / 165 -350 / -185 Weight last 48 hrs Weight 117 lb Weight 120 lb Physical Exam Narrative: EXAM NARRATIVE: Incision clean and dry. Minimal swelling left thigh. Urinary Catheter Management^: Ko: Cath Placed During This Visit: yes Reason for Continuing Indwelling Catheter: Perioperative Use in Selected Surgeries Urinary Catheter Date of Insertion: 07/01/21 Urinary Catheter Time of Insertion: 13:43 Data : 07/02/21 02:59 07/02/21 02:59 Micro: Microbiology 07/01/21 10:40 Blood Culture - Preliminary Blood SPECIMEN COLLECTED 07/01/21 10:40 Blood Culture - Preliminary Blood SPECIMEN COLLECTED A&P Assessment and plan (1) Postoperative state: Begin to mobilize. May need mcfp. Status: Acute Attestations Medical Necessity Statement*: Begin physical therapy. 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
[2021-07-02] MEDS: sennosides-docusate Tablet 2 TAB PO ×2 (08:45→17:25)
[2021-07-02] MEDS: atorvastatin 40 mg Tablet 20 MG PO (08:45)
[2021-07-02] MEDS: pantoprazole DR 40 mg Tablet PO (08:45)
[2021-07-02] MEDS: amlodipine 10 mg Tablet PO (08:46)
--- NOTE | 2021-07-02 10:03 | PM.PN ---
Subjective Subjective: Interval history: Roxann reports no particular complaints. Medications: Reviewed: Yes Vitals/I&O/Wt Last Vital Signs Temp 99.9 F H 07/02/21 07:28 Pulse 108 H 07/02/21 07:28 Resp 16 07/02/21 07:28 BP 147/91 07/02/21 07:28 Pulse Ox 94 07/02/21 07:28 07/01/21 07/02/21 07/02/21 22:59 06:59 14:59 Intake Total 170 / 170 Output Total 350 / 355 Balance 165 / 165 -350 / -185 Weight last 48 hrs Weight 53.07 kg Weight 54.431 kg Physical Exam Narrative: EXAM NARRATIVE: General exam is a white female no distress. Oriented to self only Neck supple no lymphadenopathy or thyromegaly Cardiovascular regular rate and rhythm without murmur Lungs clear no wheezing or crackles Abdomen is soft with positive bowel sounds. No obvious organomegaly. Extremities no cyanosis clubbing. Left lower extremity with shortening and external rotation Neuro moves all 4 extremities without difficulty. Still with some word finding difficulties. Urinary Catheter Management^: Ko: Cath Placed During This Visit: yes Reason for Continuing Indwelling Catheter: Perioperative Use in Selected Surgeries Urinary Catheter Date of Insertion: 07/01/21 Urinary Catheter Time of Insertion: 13:43 Data : 07/02/21 02:59 07/02/21 02:59 Micro: Microbiology 07/01/21 10:40 Blood Culture - Preliminary Blood SPECIMEN COLLECTED 07/01/21 10:40 Blood Culture - Preliminary Blood SPECIMEN COLLECTED A&P Assessment and plan (1) Closed left hip fracture: Postoperative day #1. Appreciate orthopedic consultation Discontinue fluids, Ko Discontinue morphine. Oral medicines for pain control. Status: Acute (2) Hyponatremia: Stable Status: Acute (3) Cognitive developmental delay: CT head, TSH, B12 level not revealing. Suspect underlying dementia. Status: Acute (4) Rib fractures: Unknown timing. Incentive spirometry. Some low-grade temperature elevations may be related to atelectasis. Status: Acute (5) Anemia: May be related to fracture Stable today Status: Acute (6) COPD (chronic obstructive pulmonary disease): Pulmonary toilet Status: Acute (7) Hypertension: Home meds restarted Status: Acute Additional A&P Information History of hyperlipidemia History of depression Full code Lovenox for DVT prophylaxis Attestations Medical Necessity Statement*: Needs continued hospitalization for close monitoring following hip fracture repair. 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
[2021-07-02] MEDS: enoxaparin 30 mg/0.3 mL Syringe SUBCUT (11:53)
--- NOTE | 2021-07-02 16:26 | PC.NURSE ---
Patient refuses to leave the telemetry box on.
[2021-07-02] MEDS: mirtazapine 30 mg Tablet PO (21:03)
[2021-07-03] VITALS: BP 117/76; PULSE 98; RESP 14; TEMP 37.2; O2SAT 95
[2021-07-03 02:47] LABS: Basophils # 0.1 10^3/uL (0.0-0.1); Basophils % 0.5 %; Eosinophils # 0.1 10^3/uL (0.0-0.8); Eosinophils % 0.7 %; Hematocrit 27.1 % (37.0-47.0); Hemoglobin 8.9 g/dL (11.5-15.3); Lymphocytes # 1.3 10^3/uL (0.8-4.8); Lymphocytes % 12.4 %; Mean Corpuscular HGB Conc 32.8 g/dL (30.0-36.0); Mean Corpuscular Hemoglobin 30.8 pg (28.0-34.0); Mean Corpuscular Volume 93.8 fl (81-99); Mean Platelet Volume 9.3 fL (7.4-10.4); Monocytes # 1.1 10^3/uL (0.2-0.9); Monocytes % 10.7 %; Neutrophils # 7.62 10^3/uL (1.8-7.7); Neutrophils % 75.3 %; Nucleated Red Blood Cells % 0 %; Platelet Count 239 10^3/cmm (130-400); Red Blood Count 2.89 10^6/uL (4.1-5.3); Red Cell Distribution Width 13.3 % (12.1-15.1); White Blood Count 10.1 10^3/uL (4.0-10.0)
[2021-07-03 03:04] LABS: Anion Gap 12.2 (5-19); Blood Urea Nitrogen 12 mg/dL (8-23); Calcium 8.4 mg/dL (8.5-10.5); Carbon Dioxide 21 mmol/L (22-29); Chloride 101 mmol/L (98-107); Glomerular Filtration Rate 99.4 mL/min (90-130); Glucose 109 mg/dL (65-115); Osmolality Calculated 272 mOsm/kg (285-295); Potassium 3.2 mmol/L (3.5-5.1); Sodium 131 mmol/L (136-145)
[2021-07-03 04:00] VITALS: BP 124/81; PULSE 95; RESP 16; TEMP 37.2; O2SAT 97
[2021-07-03] MEDS: lisinopril 20 mg Tablet 40 MG PO (05:38)
[2021-07-03 07:51] VITALS: BP 129/79; PULSE 107; RESP 16; TEMP 37.4; O2SAT 96
--- NOTE | 2021-07-03 09:23 | PM.PN ---
Subjective Subjective: Interval history: Roxann reports the pain in her hip is controlled. Medications: Reviewed: Yes Vitals/I&O/Wt Last Vital Signs Temp 99.4 F 07/03/21 07:51 Pulse 107 H 07/03/21 07:51 Resp 16 07/03/21 07:51 BP 129/79 07/03/21 07:51 Pulse Ox 96 07/03/21 07:51 07/02/21 07/03/21 07/03/21 22:59 06:59 14:59 Intake Total 200 / 1440 Output Total 350 / 350 Balance -350 / 890 200 / 1090 Weight last 48 hrs Weight 53.07 kg Weight 54.431 kg Physical Exam Narrative: EXAM NARRATIVE: General exam is a white female no distress. Oriented today to self and year, not month Neck supple no lymphadenopathy or thyromegaly Cardiovascular regular rate and rhythm without murmur Lungs clear no wheezing or crackles Abdomen is soft with positive bowel sounds. No obvious organomegaly. Extremities no cyanosis clubbing. Dressing clean and dry Neuro moves all 4 extremities without difficulty. Still with some word finding difficulties. Urinary Catheter Management^: Ko: Cath Placed During This Visit: yes, but has since been removed by the nurse Reason for Continuing Indwelling Catheter: Decision to DC Catheter Urinary Catheter Date of Insertion: 07/01/21 Urinary Catheter Time of Insertion: 13:43 Date Urinary Catheter Removed: 07/03/21 Time Urinary Catheter Discontinued: 06:49 Data : 07/03/21 02:11 07/03/21 02:11 Micro: Microbiology 07/01/21 10:40 Blood Culture - Preliminary Blood NEGATIVE TO DATE 07/01/21 10:40 Blood Culture - Preliminary Blood NEGATIVE TO DATE A&P Assessment and plan (1) Closed left hip fracture: Postoperative day #2. Appreciate orthopedic consultation Pain control with oral medication Status: Acute (2) Hyponatremia: Stable Status: Acute (3) Cognitive developmental delay: CT head, TSH, B12 level not revealing. Suspect underlying dementia. Status: Acute (4) Rib fractures: Unknown timing. Incentive spirometry. Some low-grade temperature elevations may be related to atelectasis. Status: Acute (5) Anemia: May be related to fracture. In part due to acute postoperative blood loss anemia Overall stable. No need for transfusion. 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
[2021-07-03] MEDS: HYDROcodone-acetaminophen 5-325 mg Tablet 1 TAB PO ×2 (10:01→18:03)
[2021-07-03] MEDS: amlodipine 10 mg Tablet PO (10:01)
[2021-07-03] MEDS: enoxaparin 30 mg/0.3 mL Syringe SUBCUT (10:01)
[2021-07-03] MEDS: sennosides-docusate Tablet 2 TAB PO ×2 (10:02→18:03)
[2021-07-03] MEDS: atorvastatin 40 mg Tablet 20 MG PO (10:02)
[2021-07-03] MEDS: pantoprazole DR 40 mg Tablet PO (10:03)
[2021-07-03] MEDS: potassium chloride ER 20 mEq Tablet 40 MEQ PO ×2 (10:43→13:06)
[2021-07-03 12:00] VITALS: BP 105/73; PULSE 105; RESP 16; TEMP 36.9; O2SAT 97
--- NOTE | 2021-07-03 14:09 | PC.RESP ---
Sent Pulmonary rehab information
[2021-07-03 15:30] VITALS: BP 106/73; PULSE 105; RESP 16; TEMP 36.7; O2SAT 99
[2021-07-03 20:00] VITALS: BP 91/60; PULSE 93; RESP 16; TEMP 36.9; O2SAT 95
[2021-07-03] MEDS: mirtazapine 30 mg Tablet PO (20:16)
[2021-07-04] VITALS: BP 109/69; PULSE 99; RESP 16; TEMP 36.6; O2SAT 96
[2021-07-04 03:26] LABS: Anion Gap 12.6 (5-19); Blood Urea Nitrogen 16 mg/dL (8-23); Calcium 8.5 mg/dL (8.5-10.5); Carbon Dioxide 21 mmol/L (22-29); Chloride 101 mmol/L (98-107); Glomerular Filtration Rate 99.4 mL/min (90-130); Glucose 98 mg/dL (65-115); Osmolality Calculated 271 mOsm/kg (285-295); Potassium 4.6 mmol/L (3.5-5.1); Sodium 130 mmol/L (136-145)
[2021-07-04 04:00] VITALS: BP 127/81; PULSE 105; RESP 16; TEMP 37.4; O2SAT 99
[2021-07-04] MEDS: lisinopril 20 mg Tablet 40 MG PO (05:59)
[2021-07-04] MEDS: HYDROcodone-acetaminophen 5-325 mg Tablet 1 TAB PO (06:09)
--- NOTE | 2021-07-04 06:18 | PC.NURSE ---
Patient AAOx3, rested well throughout shift. Refused turns because she was comfortable and sleeping well. Patient further encouraged to get OOBT bathroom and to turn frequently. Bladder scanned patient as she has not voided during shift. Patient states she only voids twice a shift, patient had >200 on scanner. Gave pain medication per request and patient stated she would get OOBT bathroom as soon as it sets in to attempt voiding. Room clutter free and call light in reach. Will report and handoff patient to oncoming nurse at shift change.
--- NOTE | 2021-07-04 06:44 | PC.NURSE ---
Patient did not urinate during shift, patient agreed to get on toilet but stated, I can't pee til after breakfast honey. She continues to state that she can only pee twice a day and that is her normal.
[2021-07-04 07:50] VITALS: BP 113/77; PULSE 104; RESP 16; TEMP 36.8; O2SAT 97
[2021-07-04] MEDS: pantoprazole DR 40 mg Tablet PO (07:52)
[2021-07-04] MEDS: amlodipine 10 mg Tablet PO (07:52)
[2021-07-04] MEDS: atorvastatin 40 mg Tablet 20 MG PO (07:52)
[2021-07-04] MEDS: sennosides-docusate Tablet 2 TAB PO (07:53)
[2021-07-04 08:00] VITALS: BP 101/59; PULSE 67; RESP 16; TEMP 36.7; O2SAT 98
--- NOTE | 2021-07-04 09:08 | P.DS_ITS ---
Discharge Providers Date of Admission: 07/01/21 17:53 Date of Discharge: July 04, 2021 Attending Provider at Admission: Glen Johnson MD Attending Provider at Discharge: Glen Johnson MD Primary Care Provider: Crystal Mccabe NP Diagnoses at Discharge Discharge Diagnosis (1) Closed left hip fracture: Status: Acute (2) Hyponatremia: Status: Acute (3) Cognitive developmental delay: Status: Acute (4) Rib fractures: Status: Acute (5) Anemia: Status: Acute (6) COPD (chronic obstructive pulmonary disease): Status: Acute (7) Hypertension: Status: Acute Reason for Visit Reason for Visit: LEFT HIP PAIN, FALL ON THURSDAY Hospital Course Hospital Course Roxann is a 66-year-old white female who presented to the hospital after a mechanical fall and sustained a left hip fracture. She denied any chest pain bu t there was evidence of left rib fractures, unknown age as well. Orthopedics was consulted. Secondary to some word finding difficulty, and memory deficits B12, TSH, CT head was performed that was unrevealing. provided further history that at least for the last month she had been worse as far as her memory and speech but it had no focal weakness. Surgery proceeded on July 01 and a left bipolar hip arthroplasty was completed. There were no complications with the surgery, and patient spent the rest of her time in the hospital recovery from surgery and working up with physical therapy to prevent falls. She was discharged on July 04 to the nursing facility for continued rehabilitation. Weightbearing exercises, follow-up, etc. per orthopedics. She will take 2 more weeks of subcutaneous Lovenox for DVT prophylaxis. Other abnormalities noted during her hospital stay which should be followed include mild hyponatremia which is stable with a sodium of 130. She did develop mild postoperative acute blood loss anemia with discharge hemoglobin of 8.9. Physical Exam Narrative: EXAM NARRATIVE: General exam is a white female, who is conversant and pleasant Neck is supple Cardiovascular regular rate and rhythm Lungs clear Abdomen is soft with positive bowel sounds Extremities no cyanosis clubbing or edema, left hip incision site clean and dry Neuro: No focal deficits. Struggles with finding the right word to say at times and cannot relate year in place at times. Dementia is suspected. Urinary Catheter Management^: Ko: Cath Placed During This Visit: yes, but has since been removed by the nurse Reason for Continuing Indwelling Catheter: Decision to DC Catheter Urinary Catheter Date of Insertion: 07/01/21 Urinary Catheter Time of Insertion: 13:43 Date Urinary Catheter Removed: 07/03/21 Time Urinary Catheter Discontinued: 06:49 Discharge Data Data Completed and Pending: Completed Studies During Hospitalization Category Date Time Status CT head wo con* 7 0450 Stat Cat Scan 07/01/21 11:59 Completed XR chest 1V dee dee ble 51350 Stat Exams 07/01/21 11:16 Completed XR hip LT 1V wo/w pel [id number] Routine Exams 07/01/21 18:28 Completed XR hip LT 2-3V wo /w pel* [id number] Stat Exams 07/01/21 09:46 Completed Pending at discharge Category Date Time Status Blood Culture Sta t Lab 07/01/21 10:40 Results Labs from last 24 hours 07/04/21 02:40 Sodium 130 L Potassium 4.6 Chloride 101 Carbon Dioxide 21 L Anion Gap 12.6 BUN 16 Creatinine 0.6 GFR Calculation 99.4 Glucose 98 Calculated Osmolal ity 271 L Calcium 8.5 Magnesium 2.0 Vitals: Last Vital Signs Temp 98.0 F 07/04/21 08:00 Pulse 67 07/04/21 08:00 Resp 16 07/04/21 08:00 BP 101/59 07/04/21 08:00 Pulse Ox 98 07/04/21 08:00 Discharge Plan Discharge Patient Disposition: Xfer SNF Condition: Stable Prescriptions: New hydrocodone-acetaminophen 5-325 mg Tablet 1 tab PO Q4H PRN (Reason: Moderate Pain) Qty: 20 RF: 0 sennosides-docusate sodium [Stool Softener-Laxative] 8.6-50 mg Tablet 2 tab PO BID Qty: 120 RF: 0 pantoprazole 40 mg Tablet,Delayed Release (Dr/Ec) 40 mg PO DAILY Qty: 30 RF: 0 lisinopril 20 mg Tablet 40 mg PO QAM Qty: 30 RF: 0 enoxaparin [Lovenox] 30 mg/0.3 mL syringe 30 mg SUBCUT Q24H 14 Days Qty: 4.2 RF: 0 aspirin 81 mg capsule 81 mg PO DAILY Qty: 30 RF: 0 Continued alendronate 70 mg tablet 70 mg PO Q7D RF: 0 pravastatin 80 mg tablet 80 mg PO DAILY RF: 0 amlodipine 10 mg tablet 10 mg PO DAILY RF: 0 mirtazapine 30 mg tablet 30 mg PO BEDTIME RF: 0 ProAir HFA 90 mcg/actuation HFA aerosol inhaler 1 - 2 puff INHALATION Q4H PRN (Reason: Shortness Of Breath) RF: 0 Discontinued lisinopril 20 mg tablet See Rx Instructions .ROUTE .COMPLEX RF: 0 Discharge Orders: Discharge Order (Routine); Ordered 07/04/21 Ordered By: Arsh Arndt Discharge Diet: Cardiac Discharge Activity: Increase activity as tolerated Activity Restrictions/Additional Instructions: Take all medicine as prescribed Follow-up with orthopedics per their instructions Wound care instructions, weightbearing instructions per orthopedics Discharge Attestations Time Spent in Discharge Care*: greater than 30 min Quality Metrics Clinical Quality Measures During this hospital stay, did patient experience: None Coding Level of Care Code Acute [facility] note Diagnoses Closed left hip fracture S72.002A Hyponatremia E87.1 Cognitive developmental delay F81.9 Rib fractures S22.49XA Anemia D64.9 COPD (chronic obstructive pulmonary disease) J44.9 Hypertension I10
--- NOTE | 2021-07-04 10:58 | PC.CHAP ---
Pastoral Care Encounter/Spiritual Assessment Type of Contact [] Declined engineer rf deployment visit [] Patient/Family/Request visit [] Outpatient visit [] Follow-up visit [] Physician referral [] Code/Alert [x] Routine visit [] Staff referral [] Actively dying [] Patient sleeping [] Family support [] [] Out of room [] Palliative care [] [x] Receiving care in room [] Pre-surgical visit [] Trauma [x] Long length of stay [] ICU visit [] Other: Relational/Emotional Strength [] Patient feels connected with others/family/visitors/staff [] Distress [x] Loneliness/isolation [] Abandonment Spirituality of Patient [x] Person of Rachelle [] Attends Yarsani of their Rachelle [x] Believes in Prayer [] Reads Bible or Mandaeism materials [] There are Spiritual issues to be addressed Safety Leader Interventions [x] Prayer [x] Active listening [x] Non-anxious presence [x] Spiritual/emotional support [] Crisis/trauma care [x] Spiritual counseling [] Bereavement support [] Provided bereavement packet [] Provided Bible/devotional materials [] Provided toy/stuffed animal, coloring book to patient or family member [] Provided Communion [] Anointing/[place] [] Salvation [x] Completed spiritual assessment [] Other: Impact on Illness or Injury [] Angry [] Fearful [x] Anxious [] Often cries [] Exhaustion [x] Unable to work [] Unable to attend christianity [] Unable to walk/stand [] Unable to read [] Unable to drive [] Unable to eat/drink [] Unable to sleep [] Unable to be with family [] Patient intubated [] Other: Summary doesn't know about her health or recovery has a good attitude wants to go home Time spent with patient
[2021-07-04] MEDS: enoxaparin 30 mg/0.3 mL Syringe SUBCUT (11:11)
[2021-07-04 11:48] VITALS: BP 101/59; PULSE 67; RESP 16; TEMP 36.7; O2SAT 98
--- NOTE | 2021-07-05 11:27 | PC.SOCIAL ---
discharge follow up call made, spoke with Renato, patient nurse at [facility]. She reports patient is doing good this morning. she is getting her lovenox injections and all other prescribed medications. per renato patient hasn't required pain medications this morning. Advised nurse to place ice to hip, 20 mins of every hour to help prevent pain and swelling. she verbalized understanding. no questions or concerns voiced. spoke with Vonda at [facility] and let her know about follow up appointment with Dr. Johnson on 07-24, Vonda will set up transportation for patient.
== END 2021-07-04 11:49 | disposition skilled nursing facility (03) | DRG 522 ==
LOC: ER 12:32 → OR 13:07 → MEDSURG 17:56
PROVIDERS: Internal Medicine; Physician Assistant; Admitting Provider Orthopaedic Surgery; Emergency Provider Family Medicine; PCP Nurse Practitioner Family; Visit Provider Orthopaedic Surgery
PROC: 0SRS0JZ Replacement of Left Hip Joint, Femoral Surface with Synthetic Substitute, Open Approach (ICD-10-PCS; CPT 27125; principal; 2021-07-01 15:20)
DX: S72.012A Unspecified intracapsular fracture of left femur, initial encounter for closed fracture (principal); S22.42XA Multiple fractures of ribs, left side, initial encounter for closed fracture; E87.1 Hypo-osmolality and hyponatremia; D62 Acute posthemorrhagic anemia; W01.0XXA Fall on same level from slipping, tripping and stumbling without subsequent striking against object, initial encounter; J44.9 Chronic obstructive pulmonary disease, unspecified; F32.9 Major depressive disorder, single episode, unspecified; E78.5 Hyperlipidemia, unspecified; I10 Essential (primary) hypertension; Z87.891 Personal history of nicotine dependence; F03.90 Unspecified dementia, unspecified severity, without behavioral disturbance, psychotic disturbance, mood disturbance, and anxiety; D64.9 Anemia, unspecified; Z96.611 Presence of right artificial shoulder joint; Z79.51 Long term (current) use of inhaled steroids
CPT/HCPCS: 36415; 70450; 71045; 73501; 73502; 80048; 80053; 81003; 82550; 82607; 83735; 84443; 85025; 85610; 85730; 87040; 93005; 96372; 97116; 97161; 97167; 97530; 97535; 99285; C1776; J0690; J1580; J1650; J2250; J2270; J2370; J2704; J7030